=== PATIENT | male | born 1950 | race Caucasian/White ===

== ENCOUNTER 2016-06-29 10:31 | Emergency (ER) | payer MEDICARE ==
[2016-06-29] MEDS ORDERED: DEXAMETHASONE 10 MG/ML VIAL PO STA (11:07)
[2016-06-29] MEDS ORDERED: DEXAMETHASONE 10 MG/ML VIAL ONE (11:45)
== END 2016-06-29 11:45 | disposition home or self-care (01) ==
DX: M54.12 Radiculopathy, cervical region (principal); I10 Essential (primary) hypertension; E11.9 Type 2 diabetes mellitus without complications

== ENCOUNTER 2021-01-16 17:10 | Outpatient (CLI) | payer MEDICARE | END 2021-01-16 17:11 | disposition EMS.NT | LOC: EMS 17:10 | DX: Z03.89 Encounter for observation for other suspected diseases and conditions ruled out (principal) ==